=== PATIENT | male | born 1970 | race Caucasian/White ===

== ENCOUNTER 2022-09-09 13:58 | Inpatient (IN) | payer SELFPAY ==
[~2022-09-09] VITALS: Ht 172.7 cm; Wt 82.2 kg
[2022-09-09 15:05] LABS: CHLORIDE 105 mEq/L (98-107)
[2022-09-09 15:17] LABS: BASOPHILS % 0.6 % (0.0-2.0); HEMATOCRIT. 48.9 % (42.0-52.0); HEMOGLOBIN. 16.3 g/dL (14.0-18.0); LYMPHOCYTES % 10.4 % (20.0-50.0); MEAN CORPUSCULAR VOLUME 89.7 fL (80.0-94.0); MEAN PLATELET VOLUME 8.7 fl (7.4-10.4); PLATELET 214 x1000/uL (130-400); RED BLOOD CELL COUNT 5.45 mill/uL (4.7-6.1); RED CELL DISTRIBUTION WIDTH 15.7 % (11.6-14.6)
[2022-09-09] MEDS ORDERED: FUROSEMIDE 40MG/4ML VIAL IVP NR (17:15)
[2022-09-10] VITALS (7 sets, daily range): BP systolic 94–150; BP diastolic 57–98
[2022-09-10] MEDS ORDERED: IPRATROPIUM/ALBUTEROL 0.5-3(2.5)MG/3ML NEB NEB PRN (01:15)
[2022-09-10] MEDS ORDERED: CLONIDINE 0.1MG TABLET PO PRN (01:15)
[2022-09-10] MEDS ORDERED: ONDANSETRON HCL 4MG/2ML INJ IV PRN (01:15)
[2022-09-10] MEDS ORDERED: MAGNESIUM/ALUMINUM HYDROXIDE/SIMETHICONE 30ML UDC PO PRN (01:15)
[2022-09-10] MEDS ORDERED: GUAIFENESIN 200MG/10ML SUGAR FREE UDC PO PRN (01:15)
[2022-09-10] MEDS ORDERED: AZITHROMYCIN 500 MG in DEXT 5% WATER 250 ML IV SCH ×2 (01:15→21:00)
[2022-09-10] MEDS ORDERED: CEFTRIAXONE 1 G PREMIX 50 ML IV SCH (01:15)
[2022-09-10] MEDS ORDERED: DOCUSATE SODIUM 100MG CAPSULE PO PRN (01:15)
[2022-09-10] MEDS ORDERED: FUROSEMIDE 40MG/4ML VIAL IV SCH (01:15)
[2022-09-10] MEDS ORDERED: ACETAMINOPHEN 325MG TABLET PO PRN ×2 (01:15)
[2022-09-10 02:10] LABS: CLARITY URINE CLEAR (CLEAR); COLOR URINE YELLOW (YELLOW); KETONES URINE NEGATIVE (NEGATIVE); LEUKOCYTE ESTERASE URINE NEGATIVE (NEGATIVE); NITRITE URINE NEGATIVE (NEGATIVE); OCCULT BLOOD URINE NEGATIVE (NEGATIVE); PH URINE 6.5 (4.5-8.0); PROTEIN URINE NEGATIVE (NEGATIVE)
[2022-09-10 02:28] LABS: *AMPHETAMINES SCREEN URINE NEGATIVE (NEGATIVE); *BARBITURATES SCREEN URINE NEGATIVE (NEGATIVE); *BENZODIAZEPINES SCREEN URINE NEGATIVE (NEGATIVE); *COCAINE SCREEN URINE PRESUMTIVE POSITIVE (NEGATIVE); CANNABINOID URINE SCREEN NEGATIVE (NEGATIVE); METHADONE URINE SCREEN NEGATIVE (NEGATIVE); OPIATES URINE SCREEN NEGATIVE (NEGATIVE); PHENCYCLIDINE URINE SCREEN NEGATIVE (NEGATIVE)
[2022-09-10 04:56] LABS: EOSINOPHILS % 0.7 % (0.0-5.0); HEMATOCRIT. 47.9 % (42.0-52.0); HEMOGLOBIN. 16.1 g/dL (14.0-18.0); LYMPHOCYTES % 26.7 % (20.0-50.0); MEAN CORPUSCULAR HEMOGLOBIN 30.2 pg (28.0-32.0); MEAN CORPUSCULAR VOLUME 89.7 fL (80.0-94.0); MEAN PLATELET VOLUME 8.4 fl (7.4-10.4); MONOCYTES % 6.8 % (2.0-8.0); NEUTROPHILS % 64.8 % (40.0-76.0); PLATELET 211 x1000/uL (130-400); RED BLOOD CELL COUNT 5.33 mill/uL (4.7-6.1); RED CELL DISTRIBUTION WIDTH 15.7 % (11.6-14.6)
[2022-09-10 05:25] LABS: CHLORIDE 105 mEq/L (98-107)
[2022-09-10 05:43] LABS: HDL CHOLESTEROL 30 mg/dL (40-59); LDL CHOLESTEROL 89 mg/dL (5-100); PHOSPHORUS 5.2 mg/dL (2.5-4.9); T4 FREE 1.27 ng/dL (0.76-1.46)
[2022-09-10] MEDS: ENOXAPARIN 40MG/0.4ML SYR SUBCUT SCH (09:28)
[2022-09-10] MEDS: LISINOPRIL 10MG TABLET PO SCH (09:28)
[2022-09-10] MEDS ORDERED: AMLODIPINE 2.5MG TABLET PO NR (09:30)
[2022-09-10] MEDS ORDERED: ALBUTEROL (0.083%) 2.5MG/3ML NEB HHN PRN (11:15)
[2022-09-10] MEDS ORDERED: IPRATROPIUM BROMIDE (0.02%) 0.5MG/2.5ML NEB HHN PRN (11:15)
[2022-09-10] MEDS: FUROSEMIDE 40MG/4ML VIAL IV SCH (17:23)
[2022-09-10] MEDS: FAMOTIDINE 20MG TABLET PO SCH (20:16)
[2022-09-11] VITALS: BP 117/63
[2022-09-11 04:00] VITALS: BP 133/73
[2022-09-11] MEDS: FUROSEMIDE 40MG/4ML VIAL IV SCH ×2 (05:54→17:18)
[2022-09-11 06:21] LABS: BASOPHILS % 0.9 % (0.0-2.0); EOSINOPHILS % 2.4 % (0.0-5.0); HEMOGLOBIN. 15.8 g/dL (14.0-18.0); LYMPHOCYTES % 20.5 % (20.0-50.0); MEAN CORPUSCULAR HEMOGLOBIN 30.1 pg (28.0-32.0); MEAN CORPUSCULAR VOLUME 89.4 fL (80.0-94.0); MEAN PLATELET VOLUME 8.6 fl (7.4-10.4); MONOCYTES % 7.8 % (2.0-8.0); NEUTROPHILS % 68.4 % (40.0-76.0); PLATELET 193 x1000/uL (130-400); RED BLOOD CELL COUNT 5.26 mill/uL (4.7-6.1); RED CELL DISTRIBUTION WIDTH 15.7 % (11.6-14.6)
[2022-09-11 06:31] LABS: CHLORIDE 106 mEq/L (98-107)
[2022-09-11] MEDS: POTASSIUM CHLORIDE 20MEQ TABLET SR PO SCH (08:19)
[2022-09-11 08:20] VITALS: BP 125/56
[2022-09-11] MEDS: AMLODIPINE 2.5MG TABLET PO SCH (08:20)
[2022-09-11] MEDS: ENOXAPARIN 40MG/0.4ML SYR SUBCUT SCH (08:20)
[2022-09-11] MEDS: ASPIRIN 81MG EC TABLET PO SCH (08:20)
[2022-09-11] MEDS: LISINOPRIL 10MG TABLET PO SCH (08:20)
[2022-09-11] MEDS ORDERED: CEFTRIAXONE 1,000 MG in DEXTROSE 5% WATER 50 ML IV SCH (09:00)
[2022-09-11 09:10] LABS: BG BASE EXCESS 4.3 mmol/L (-2.0-2.0); BG DEOXYHEMOGLOBIN 2.7 % (0.0-5.0); BG FRACTION INSPIRED OXYGEN 28; BG HCO3 ACT 28.5 mmol/L (22.0-26.0); BG METHEMOGLOBIN 0.5 % (0.0-1.5); BG OXYGEN SATURATION 97.3 % (92.0-98.5); BG OXYHEMOGLOBIN 95.8 % (94.0-97.0); BG PO2 94.4 mmHg (75.0-100.0); BG SAMPLE SITE RIGHT BRACHIAL; BG TOTAL HEMOGLOBIN 16.8 g/dL (12.0-18.0); BG VENT MODE NASAL CANNULA
[2022-09-11 12:00] VITALS: BP 126/77
[2022-09-11 16:31] LABS: D-DIMER 1.98 mg/L FEU (<0.50); INR 1.2; PROTHROMBIN TIME 12.4 sec (9.6-11.0)
[2022-09-11 16:55] VITALS: BP 110/74
[2022-09-11] MEDS ORDERED: IOHEXOL-350 100 ML BOTTLE ONE (18:02)
[2022-09-11 20:00] VITALS: BP 118/56
[2022-09-11] MEDS: FAMOTIDINE 20MG TABLET PO SCH (21:09)
[2022-09-12] VITALS: BP 112/64
[2022-09-12 04:00] VITALS: BP 101/85
[2022-09-12] MEDS: FUROSEMIDE 40MG/4ML VIAL IV SCH (06:39)
[2022-09-12 06:52] LABS: BASOPHILS % 1.1 % (0.0-2.0); EOSINOPHILS % 3.8 % (0.0-5.0); HEMATOCRIT. 50.5 % (42.0-52.0); LYMPHOCYTES % 35.7 % (20.0-50.0); MEAN CORPUSCULAR VOLUME 88.9 fL (80.0-94.0); MEAN PLATELET VOLUME 8.7 fl (7.4-10.4); MONOCYTES % 7.4 % (2.0-8.0); PLATELET 221 x1000/uL (130-400); RED BLOOD CELL COUNT 5.68 mill/uL (4.7-6.1); RED CELL DISTRIBUTION WIDTH 15.5 % (11.6-14.6)
[2022-09-12 07:00] LABS: CHLORIDE 103 mEq/L (98-107)
[2022-09-12 08:00] VITALS: BP 121/74
[2022-09-12] MEDS: POTASSIUM CHLORIDE 20MEQ TABLET SR PO SCH (08:44)
[2022-09-12] MEDS: AMLODIPINE 2.5MG TABLET PO SCH (08:44)
[2022-09-12] MEDS: LISINOPRIL 10MG TABLET PO SCH (08:44)
[2022-09-12] MEDS: ASPIRIN 81MG EC TABLET PO SCH (08:45)
[2022-09-12] MEDS: ENOXAPARIN 40MG/0.4ML SYR SUBCUT SCH (08:45)
[2022-09-12] MEDS ORDERED: ASPI-1406 PO (11:18)
[2022-09-12] MEDS ORDERED: LISI10TA26 PO (11:18)
[2022-09-12] MEDS ORDERED: FAMO20TA8 PO (11:18)
[2022-09-12] MEDS ORDERED: AMLO2.5T45 PO (11:18)
[2022-09-12] MEDS ORDERED: TOPUD PO (11:18)
[2022-09-12] MEDS ORDERED: FURO10VI3 IV (11:18)
[2022-09-12 12:00] VITALS: BP 122/69
[2022-09-12 12:20] VITALS: BP 121/74
== END 2022-09-12 15:20 | disposition home or self-care (01) | DRG 194 ==
LOC: ER 13:58 → EDBEDREQ 17:32 → MICUSO 19:06 → EDBEDREQ 19:08 → EDBEDREQTM 19:08 → 3WST 09-10 11:04
PROVIDERS: ADMIT Internal Medicine; ATTEND Internal Medicine
DX: I11.0 Hypertensive heart disease with heart failure (principal); J96.01 Acute respiratory failure with hypoxia; E44.1 Mild protein-calorie malnutrition; I50.23 Acute on chronic systolic (congestive) heart failure; F17.210 Nicotine dependence, cigarettes, uncomplicated; Z68.27 Body mass index [BMI] 27.0-27.9, adult; I34.0 Nonrheumatic mitral (valve) insufficiency; I42.9 Cardiomyopathy, unspecified; J44.9 Chronic obstructive pulmonary disease, unspecified; Z20.822 Contact with and (suspected) exposure to COVID-19; F14.129 Cocaine abuse with intoxication, unspecified; Z79.899 Other long term (current) drug therapy; Z91.14 Patient's other noncompliance with medication regimen
CPT/HCPCS: 36415; 36600; 71045; 71275; 80048; 80053; 80061; 80305; 81003; 82375; 82805; 83735; 83880; 84100; 84145; 84439; 84443; 84481; 84484; 85025; 85379; 87426; 93005; 93306; 93970; 99285; J0456; J0696; J1650; J1940; J7060; Q9967